=== PATIENT | male | born 1955 | race Caucasian/White ===

== ENCOUNTER → 2017-03-11 | Outpatient (CLI) | payer OTHER, MEDICAID ==
[~2017-03-11] MED LIST: GADOBUTROL 10 ML VIAL IVP ONE
== END ==
LOC: FIMAGING 14:21
PROVIDERS: ATTEND Physician Assistant Medical
DX: R90.82 White matter disease, unspecified (principal); J01.30 Acute sphenoidal sinusitis, unspecified; C85.90 Non-Hodgkin lymphoma, unspecified, unspecified site
CPT/HCPCS: 70553; A9585

== ENCOUNTER 2017-08-31 17:21 | Emergency (ER) | payer MEDICAID, OTHER ==
--- NOTE | 2017-08-31 17:54 | EDPHY ---
H & P Stated Complaint: WEAKNESS, DIARRHEA HPI/ROS: CHIEF COMPLAINT: Diarrhea HISTORY OF PRESENT ILLNESS: The patient is a 61 y/o male with history of lymphoma (in remission) complaining of diarrhea since 05:00, 13 hours ago. He has had over 20 reported episodes so far, his most recent bowel movement was at 17:00, 1 hour ago. He took Imodium and Pedialyte with no relief. He is also having crampy lower abdominal pain and chills. He did not take his diabetes pills today. No travel. Denies fever, blood in stool, vomiting, urinary complaints or other pertinent symptoms. Daughter translated during the exam. REVIEW OF SYSTEMS: A ten point review of systems was performed and is negative with the exception of the items mentioned in the HPI. Past medical history: Lymphoma (in remission) Diabetes Hypercholesteremia Hypertension Arthritis Past surgical history: Brain surgery for cancer Family history: Noncontributory Social history: Family at bedside Denies alcohol or tobacco use Lives in [place] General Appearance: Alert. Vital signs reviewed. BP 146/97. Eyes: Pupils equal and round, no conjunctival injection, no discharge. Anicteric. ENT, Mouth: Mucous membranes are moist, no oropharyngeal erythema or edema. Neck: No lymphadenopathy, supple. Respiratory: Lungs are clear to auscultation; no wheezes, rales, or rhonchi. Cardiovascular: Regular rate and rhythm; no murmur, rub, or gallop. Gastrointestinal: Mild, diffuse abdominal tenderness, no guarding, no masses or organomegaly, bowel sounds normal. Skin: Warm and dry, no rashes on exposed skin, normal color. Back: Nontender to palpation over the thoracolumbar spine. No CVAT. Extremities: No lower extremity edema, no calf tenderness or swelling. Neurological: Alert and oriented. Moving all four extremities easily and equally. Psychiatric: Normal affect. - Personal History Current Tetanus/Diphtheria Vaccine: Yes Current Tetanus Diphtheria and Acellular Pertussis (TDAP): Yes Tetanus Vaccine Date: within 10 years - Medical/Surgical History Hx Asthma: No Hx Chronic Respiratory Disease: No Hx Diabetes: No Hx Cardiac Disease: No Hx Renal Disease: No Hx Cirrhosis: No Hx Alcoholism: No Hx HIV/AIDS: No Hx Splenectomy or Spleen Trauma: No Other PMH: arthritis, high cholesterol, HTN, brain cancer, surgery in brain for cancer - Social History Smoking Status: Never smoked Constitutional: Initial Vital Signs Temperature (C) 36.6 C 08/31/17 17:24 Heart Rate 99 08/31/17 17:24 Respiratory Rate 18 08/31/17 17:24 Blood Pressure 146/97 H 08/31/17 17:24 O2 Sat (%) 96 08/31/17 17:24 O2 Delivery Mode Room Air Allergies/Adverse Reactions: No Known Allergies Allergy (Verified 09/24/16 13:28) Home Medications: Medication Instructions Recorded Atorvastatin Calcium 09/24/16 Bp Med 09/24/16 Tylenol 09/24/16 Medical Decision Making ED Course/Re-evaluation: The patient is a 61 y/o male presenting with over 20 episodes of diarrhea in the last 13 hours. On exam he has diffuse abdominal tenderness, no peritoneal signs. 1L IV NS administered. Reassessed patient, one episode of diarrhea in ED. Stool sent for pathogens. Results not available yet. He is feeling better and would like to return home. I rthink this is reasonable. He is able to take PO and can continue to rehydrate himself. Danger signs reviewed. His WBC is improved from previous. Blood glucose 107. Georgian foreign language instructor used for patient encounters. Return precautions provided; patient and his family are comfortable with this plan. Differential Diagnosis: DDX of diarrhea including but not limited to infectious (food contamination, viral, bacterial, parasitic infection), medication, stress, food intolerance. - Data Points Laboratory Results: Laboratory Results 08/31/17 18:00 08/31/17 18:00 Medications Given: Discontinued Medications Sodium Chloride (Ns) 1,000 mls @ 0 mls/hr IV EDNOW ONE; Wide Open PRN Reason: Protocol Stop: 08/31/17 18:11 Last Admin: 08/31/17 18:38 Dose: 1,000 mls Departure - Departure Disposition: Home, Routine, Self-Care Clinical Impression: Diarrhea Qualifiers: Diarrhea type: infectious Qualified Code(s): A09 - Infectious gastroenteritis and colitis, unspecified Condition: Good Instructions: Acute Diarrhea (ED) Additional Instructions: We will call you if your stool sample has an abnormal result that requires medication. Follow up with your primary care provider in the next week. Return to the Emergency Department if you experience chest pain, shortness of breath, vomiting, fever or other worsening of your symptoms. - Le llamaremos si la prueba de escremento tiene resultado anormal que requiera de medicamento. - Aneudy na connor de seguimiento con ferguson doctor primario la proxima semana. - Regrese a la eduardo de emergencia si tiene dolor de pecho, falta de respiracion , vomito, fiebre u otros sintomas peores. Referrals: Alec Spann MD [Primary Care Provider] - As per Instructions Print Language: Georgian Report Scribed for: Aysha Fournier Date of Report: 08/31/17 Physician Review and Approval Statement: 08/31/17 17:54 Portions of this note were transcribed by the medical registrarSujey. I, Dr. Aysha Fournier, personally performed the history, physical exam, and medical decision-making; and confirmed the accuracy of the information in the transcribed note. 09/04/17 09:56
[2017-08-31] MEDS ORDERED: NS 1,000 ML IV ONE (18:10)
[2017-08-31 18:22] LABS: % IMMATURE GRANULYOCYTES 0.2 % (0.0-1.1); ABSOLUTE IMMATURE GRANULOCYTES 0.01 10^3/uL (0.00-0.10); ADD DIFF? NO; ADD MORPH? NO; ADD SCAN? NO; ATYPICAL LYMPHOCYTE FLAG 10 (0-99); FRAGMENT RBC FLAG 0 (0-99); HEMATOCRIT 42.2 % (40.0-51.0); HEMOGLOBIN 14.6 g/dL (13.7-17.5); LEFT SHIFT FLG 0 (0-99); LIPEMIA HEMOLYSIS FLAG 90 (0-99); MEAN CELL HEMOGLOBIN 31.1 pg (27.9-34.1); MEAN CELL HEMOGLOBIN CONCENTR. 34.6 g/dL (32.4-36.7); MEAN CELL VOLUME 89.8 fL (81.5-99.8); MEAN PLATELET VOLUME 9.7 fL (8.7-11.7); PLATELET CLUMPS FLAG 0 (0-99); PLATELET COUNT 60 10^3/uL (150-400); RED CELL DISTRIBUTION WIDTH 14.6 % (11.5-15.2)
[2017-08-31 18:32] LABS: ANION GAP 15 mEq/L (8-16); CALCIUM 9.3 mg/dL (8.5-10.4); CARBON DIOXIDE 21 mEq/l (22-31); CHLORIDE 99 mEq/L (97-110); CREATININE 0.8 mg/dL (0.7-1.3); GLOMERULAR FILTRATION RATE > 60; GLUCOSE 107 mg/dL (70-100); POTASSIUM 4.8 mEq/L (3.5-5.2); SODIUM 135 mEq/L (134-144); SPECIMEN HEMOLYSIS 112
[2017-08-31 20:50] VITALS: BP 138/74; PULSE 85; RESP 16; TEMP 97.7; O2SAT 94
== END 2017-08-31 20:51 | disposition home or self-care (01) ==
DX: A09 Infectious gastroenteritis and colitis, unspecified (principal); E11.9 Type 2 diabetes mellitus without complications; I10 Essential (primary) hypertension; E86.9 Volume depletion, unspecified; Z85.841 Personal history of malignant neoplasm of brain